=== PATIENT | male | born 1980 | race Caucasian/White ===

== ENCOUNTER 2025-11-16 13:52 | Emergency (ER) | payer BC, OTHER ==
[~2025-11-16] VITALS: Ht 172.7 cm; Wt 78.8 kg
[2025-11-16] MEDS: LIDOCAINE HCL 1 % PF INJ 2ML AMP IJ ONE (15:30)
[2025-11-16] MEDS: LIDOCAINE 1% HCL (LOCAL ANESTH.) INJ 20ML MDV ONE (15:48)
--- NOTE | 2025-11-16 15:49 | ED.PDOC ---
HPI Comments 45 y/o M, presents to the ED for CC of laceration. Patient states, he was using an industrial james when he accidentally cut his 2nd left distal phalanx twice. Patient has two 1cm lacerations to the left 2nd distal phalanx. Patient denies numbness, tingling, or weakness. Chief Complaint: Laceration Time Seen by MD: 15:15 Reviewed Notes: Nurses Notes, Medications, Allergies Allergies: Coded Allergies: NO KNOWN ALLERGIES (Unverified , 11/16/25) Home Meds Active Scripts Clindamycin Hcl (Clindamycin Hcl) 300 Mg Cap, 1 CAP PO TID for 7 Days, #21 CAP Prov:ABDELRAHMAN VALENZUELA MD 11/16/25 Amoxicillin & Pot Clavulanate (Augmentin) 500 Mg Tab, 1 TAB PO BID for 7 Days, #14 TAB Prov:BADELRAHMAN VALENZUELA MD 11/16/25 Information Source: Patient Mode of Arrival: Ambulatory Severity: Moderate Severity of Laceration: Controlled Bleeding Complexity: Simple Timing: Minutes Prehospital treatment: None Laceration Location: Digit #2 (left hand) Last Tetanus: Unknown Laceration Length (cm): 2 Skin Type: Linear Depth of Injury: Skin Discharge: Bloody Erythema: Localized to Wound Edges Associated Signs and Symptoms: None Past Medical History PAST MEDICAL HISTORY: Denies Surgical History: Denies all surgeries Family History Family History: Unknown Social History Smoker: Non-Smoker Alcohol: Denies ETOH Use Drugs: Denies Drug Use Lives In: Home Constitutional: denies: chills, diaphoresis, fatigue, fever, malaise, sweats, weakness, others EENTM: denies: blurred vision, double vision, ear bleeding, ear discharge, ear drainage, ear pain, ear ringing, eye pain, eye redness, hearing loss, mouth pain, mouth swelling, nasal discharge, nose bleeding, nose congestion, nose pain, photophobia, tearing, throat pain, throat swelling, voice changes, others Respiratory: denies: cough, hemoptysis, orthopnea, SOB at rest, shortness of breath, SOB with excertion, stridor, wheezing, others Cardiovascular: denies: chest pain, dizzy spells, diaphoresis, Dyspnea on exertion, edema, irregular heart beat, left arm pain, lightheadedness, palpitations, PND, syncope, others Gastrointestinal: denies: abdomen distended, abdominal pain, blood streaked bowels, constipated, diarrhea, dysphagia, difficulty swallowing, hematemesis, melena, nausea, poor appetite, poor fluid intake, rectal bleeding, rectal pain, vomiting, others Genitourinary: denies: burning, dysuria, flank pain, frequency, hematuria, incontinence, penile discharge, penile sore, pain, testicle pain, testicle swelling, urgency, others Neurological: denies: dizziness, fainting, headache, left sided numbness, left sided weakness, numbness, paresthesia, pre-existing deficit, right sided numbness, right sided weakness, seizure, speech problems, tingling, tremors, weakness, others Musculoskeletal: denies: back pain, gout, joint pain, joint swelling, muscle pain, muscle stiffness, neck pain, others Integumetry: reports: laceration (to left 2nd digit); denies: bruises, change in color, change in hair/nails, dryness, lesions, lumps, rash, wounds, others Allergic/Immunocompromised: denies: Difficulty Healing, Frequent Infections, Hives, Itching, others Hematologic/Lymphatic: denies: anemia, blood clots, easy bleeding, easy bruising, swollen glands, others Endocrine: denies: excessive hunger, excessive sweating, excessive thirst, excessive urination, flushing, intolerance to cold, intolerance to heat, unexplained weight gain, unexplained weight loss, others Psychiatric: denies: anxiety, bipolar disorder, depression, hopeless, panic disorder, schizophrenia, sleepless, suicidal, others All Other Systems: Reviewed and Negative Physical Exam General Appearance: Moderate Distress HEENT: Normal ENT Inspection, Pharynx Normal, TMs Normal Neck: Full Range of Motion, Non-Tender, Normal, Normal Inspection Respiratory: Chest Non-Tender, Lungs Clear, No Accessory Muscle Use, No Respiratory Distress, Normal Breath Sounds Cardiovascular: No Edema, No JVD, No Murmur, No Gallop, Normal Peripheral Pulses, Regular Rate/Rhythm Breast Exam: Deferred Gastrointestinal: No Organomegaly, Non Tender, No Pulsatile Mass, Normal Bowel Sounds, Soft Genitalia: Deferred Pelvic: Deferred Rectal: Deferred Extremities: No calf tenderness, Normal capillary refill, Normal inspection, Normal range of motion, Non-tender, No pedal edema Musculoskeletal : Apperance: Normal Neurologic: Alert, 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 Was a procedure done?: Yes Sedation Sedation?: No Laceration Repair : Location 1cm x2 to distal 2nd phalanx Length 2cm Anesthetic: Lidocaine Laceration Repair Prep: Saline, Manual Scrub Laceration Repair Wound Comple: epidermis/dermis repair Laceration Repair: Number of sutures Informed consent obtained: Yes Risks, benefits, and alternati: Yes Differential diagnosis Generic Laceration: Laceration X-Ray, Labs, Meds, VS Vital Signs Date Time Temp Pulse Resp B/P (MAP) Pulse Ox O2 Delivery O2 Flow Rate FiO2 11/16/25 17:11 97.9 113 18 140/110 (120) 98 97.9 11/16/25 13:53 98.3 106 16 153/98 98 98.3 Current Medications Medications (Trade) Dose Ordered Sig/Melinda Route Start Time Stop Time Status Last Admin Ceftriaxone Sodium (Rocephin) 1,000 mg ONCE ONCE IM 11/16/25 16:30 11/16/25 16:31 DC 11/16/25 17:20 Diphtheria/ Tetanus/Acell Pertussis (Boostrix T-Dap) 0.5 ml ONCE ONCE IM 11/16/25 17:15 11/16/25 17:16 DC 11/16/25 17:22 Patient alert. Came in because of laceration of the left index finger. On examination has multiple areas of laceration. Bleeding. Possible ligamentous injury. Explained to the family that they could be some injuries that can not be avoided. Was given tetanus. Was given Rocephin. Was given prescription of Augmentin clindamycin antibiotic. Was told to follow up with his primary care physician. Was told to come back if there is any problem. Time of 1ST Reevaluation: 15:45 Reevaluation 1ST: Improved Patient Education/Counseling: Diagnosis, Treatment Family Education/Counseling: Diagnosis, Treatment Departure 1 Departure Time of Disposition: 17:36 Impression: Primary Impression: Laceration Disposition: 01 HOME / SELF CARE / HOMELESS Condition: Good e-Prescriptions Clindamycin Hcl (Clindamycin Hcl) 300 Mg Cap 1 CAP PO TID for 7 Days, #21 CAP Prov: ABDELRAHMAN VALENZUELA MD 11/16/25 Amoxicillin & Pot Clavulanate (Augmentin) 500 Mg Tab 1 TAB PO BID for 7 Days, #14 TAB Prov: ABDELRAHMAN VALENZUELA MD 11/16/25 Discharged With: Self Critical Care Note Critical Care Time?: No Stability Stability form required: No Heart Score Heart Score: Heart Score Response (Comments) Value History N/A 0 EKG N/A 0 Age N/A 0 Risk Factors N/A 0 Troponin N/A 0 Total 0 I personally scribed for ABDELRAHMAN VALENZUELA MD ([email or web address]) on 11/16/25 at 15:49. Electronically submitted by Karen Ho [email or web address]). ABDELRAHMAN VALENZUELA MD Nov 16, 2025 15:49
[2025-11-16 17:11] VITALS: BP 140/110; PULSE 113; RESP 18; TEMP 97.9; O2SAT 98
[2025-11-16] MEDS: cefTRIAXone SOD 1,000 MG VL IM ONE (17:20)
--- NOTE | 2025-11-16 17:21 | DVH ---
CLINICAL INDICATION: trauma TECHNIQUE: 2 radiographic views of the left hand were obtained. COMPARISON: None FINDINGS/IMPRESSION: Soft tissue injury is noted over the distal phalanx left index finger. There is no fracture or dislocation
[2025-11-16] MEDS: TETANUS-DIPTH-ACEL PERTUSSIS 0.5ML SYR Tdap IM ONE (17:22)
[2025-11-16] MEDS ORDERED: CLIN1CAP70 PO (17:37)
[2025-11-16] MEDS ORDERED: AMOX500T86 PO (17:37)
== END 2025-11-16 18:00 | disposition home or self-care (01) ==
LOC: ER 13:52
DX: S61.211A Laceration without foreign body of left index finger without damage to nail, initial encounter (principal); W45.8XXA Other foreign body or object entering through skin, initial encounter; Y93.89 Activity, other specified; Y92.89 Other specified places as the place of occurrence of the external cause; Y99.8 Other external cause status
CPT/HCPCS: 12001; 73120; 90471; 90715; 96372; 99284; A4649; J0696; J2003

== ENCOUNTER 2025-11-18 08:06 | Emergency (ER) | payer BC ==
[~2025-11-18] VITALS: Ht 172.7 cm; Wt 78.3 kg
[~2025-11-18 08:06] MED LIST: AMOX500T86 PO; CLIN1CAP70 PO
[2025-11-18 08:27] VITALS: BP 139/85; PULSE 100; RESP 17; TEMP 98.9; O2SAT 99
--- NOTE | 2025-11-18 08:32 | ED.PDOC ---
History of Present Illness HPI Comments 45 year old male presents to the ED with a chief compliant of wound check onset today. Patient was seen in this ED on 11/16/25 for laceration, was advised to come to ED for wound check today, wound appears healing properly. He was advised to return on 11/20/24. Patient currently has no complaints. Denies fever, chills, headache, dizziness, nausea, vomiting, numbness/tingling. No other symptoms or modifying factors present at this time. Chief Complaint: Wound Check Time Seen by MD: 08:20 Reviewed Notes: Medications, Allergies Allergies: Coded Allergies: NO KNOWN ALLERGIES (Unverified , 11/16/25) Home Meds Active Scripts Clindamycin Hcl (Clindamycin Hcl) 300 Mg Cap, 1 CAP PO TID for 7 Days, #21 CAP Prov:ABDELRAHMAN VALENZUELA MD 11/16/25 Amoxicillin & Pot Clavulanate (Augmentin) 500 Mg Tab, 1 TAB PO BID for 7 Days, #14 TAB Prov:ABDELRAHMAN VALENZUELA MD 11/16/25 Information Source: Patient, Spouse Mode of Arrival: Ambulatory Severity: Moderate Timing: Hours Duration: Since onset Prehospital treatment: None Past Medical History PAST MEDICAL HISTORY: Denies Surgical History: Denies all surgeries Family History Family History: Unknown Social History Smoker: Non-Smoker Alcohol: Denies ETOH Use Drugs: Denies Drug Use Lives In: Home Constitutional: denies: chills, diaphoresis, fatigue, fever, malaise, sweats, weakness, others EENTM: denies: blurred vision, double vision, ear bleeding, ear discharge, ear drainage, ear pain, ear ringing, eye pain, eye redness, hearing loss, mouth pain, mouth swelling, nasal discharge, nose bleeding, nose congestion, nose pain, photophobia, tearing, throat pain, throat swelling, voice changes, others Respiratory: denies: cough, hemoptysis, orthopnea, SOB at rest, shortness of breath, SOB with excertion, stridor, wheezing, others Cardiovascular: denies: chest pain, dizzy spells, diaphoresis, Dyspnea on exertion, edema, irregular heart beat, left arm pain, lightheadedness, palpitations, PND, syncope, others Gastrointestinal: denies: abdomen distended, abdominal pain, blood streaked bowels, constipated, diarrhea, dysphagia, difficulty swallowing, hematemesis, melena, nausea, poor appetite, poor fluid intake, rectal bleeding, rectal pain, vomiting, others Genitourinary: denies: burning, dysuria, flank pain, frequency, hematuria, incontinence, penile discharge, penile sore, pain, testicle pain, testicle swelling, urgency, others Neurological: denies: dizziness, fainting, headache, left sided numbness, left sided weakness, numbness, paresthesia, pre-existing deficit, right sided numbness, right sided weakness, seizure, speech problems, tingling, tremors, weakness, others Musculoskeletal: denies: back pain, gout, joint pain, joint swelling, muscle pain, muscle stiffness, neck pain, others Integumetry: denies: bruises, change in color, change in hair/nails, dryness, laceration, lesions, lumps, rash, wounds, others Allergic/Immunocompromised: denies: Difficulty Healing, Frequent Infections, Hi ves, Itching, others Hematologic/Lymphatic: denies: anemia, blood clots, easy bleeding, easy bruising, swollen glands, others Endocrine: denies: excessive hunger, excessive sweating, excessive thirst, excessive urination, flushing, intolerance to cold, intolerance to heat, unexplained weight gain, unexplained weight loss, others Psychiatric: denies: anxiety, bipolar disorder, depression, hopeless, panic disorder, schizophrenia, sleepless, suicidal, others All Other Systems: Reviewed and Negative Physical Exam General Appearance: Moderate Distress, Normal HEENT: Normal ENT Inspection, Pharynx Normal, TMs Normal Neck: Full Range of Motion, Non-Tender, Normal, Normal Inspection Respiratory: Chest Non-Tender, Lungs Clear, No Accessory Muscle Use, No Respiratory Distress, Normal Breath Sounds Cardiovascular: No Edema, No JVD, No Murmur, No Gallop, Normal Peripheral Pulses, Regular Rate/Rhythm Breast Exam: Deferred Gastrointestinal: No Organomegaly, Non Tender, No Pulsatile Mass, Normal Bowel Sounds, Soft Genitalia: Deferred Pelvic: Deferred Rectal: Deferred Extremities: No calf tenderness, Normal capillary refill, Normal inspection, Normal range of motion, Non-tender, No pedal edema Musculoskeletal : Apperance: Normal 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 Was a procedure done?: No Differential Dx Considerations may include: Wound check X-Ray, Labs, Meds, VS Vital Signs Date Time Temp Pulse Resp B/P (MAP) Pulse Ox O2 Delivery O2 Flow Rate FiO2 11/18/25 08:27 98.9 100 17 139/85 (103) 99 98.9 11/18/25 08:11 97.5 107 18 175/107 97 97.5 Patient alert. Vitals stable. Answering questions. Has a wound healing well. Saturation pristine on room air. No acute process. Wound pink in color. Was told to follow up with his primary care physician. Was told to come back if there is any problem. Time of 1ST Reevaluation: 08:50 Reevaluation 1ST: Improved Patient Education/Counseling: Diagnosis, Treatment, Prognosis Family Education/Counseling: Diagnosis, Treatment, Prognosis SEPSIS Sepsis Screen Date sepsis recognized/suspect: Nov 18, 2025 Time Sepsis recognized/suspect: 0811 Recent Procedure: No On Antibiotic Therapy: No Respiratory Rate >20: No Heart Rate >90: Yes (107) Temp<36 C (96.8 F) or >38.3 C: No SBP <90 or MAP <65 mmHG: No New Acute Mental Status Change: No Is the patient on CPAP, BIPAP,: No Vital Signs Date Time Temp Pulse Resp B/P (MAP) Pulse Ox O2 Delivery O2 Flow Rate FiO2 11/18/25 08:27 98.9 100 17 139/85 (103) 99 98.9 11/18/25 08:11 97.5 107 18 175/107 97 97.5 Departure 1 Departure Time of Disposition: 08:34 Impression: Primary Impression: Visit for wound check Disposition: 01 HOME / SELF CARE / HOMELESS Condition: Good Discharged With: Self Critical Care Note Critical Care Time?: No Stability Stability form required: No Heart Score Heart Score: Heart Score Response (Comments) Value History N/A 0 EKG N/A 0 Age N/A 0 Risk Factors N/A 0 Troponin N/A 0 Total 0 I personally scribed for ABDELRAHMAN VALENZUELA MD ([email or web address]) on 11/18/25 at 08:32. Electronically submitted by Jaja Sampson ([email or web address]). ABDELRAHMAN VALENZUELA MD Nov 18, 2025 08:32
[2025-11-21] MEDS ORDERED: METF-370 PO (10:28)
== END 2025-11-18 08:39 | disposition home or self-care (01) ==
LOC: ER 08:06
DX: S61.211D Laceration without foreign body of left index finger without damage to nail, subsequent encounter (principal); Z48.00 Encounter for change or removal of nonsurgical wound dressing; X58.XXXD Exposure to other specified factors, subsequent encounter